=== PATIENT | female | born 1955 | race American Indian/Alaskan Native ===

== ENCOUNTER 2019-07-01 10:06 | Emergency (ER) | payer OTHER ==
[2019-07-01] MEDS ORDERED: TETANUS,DIPH,PERTUSS(ACELL) VACCINE 0.5 ML SYRINGE IM ONE (10:31)
[2019-07-01] MEDS ORDERED: LISINOPRIL 20 MG TAB PO ONE (10:34)
--- NOTE | 2019-07-01 10:37 | Emergency Department Report ---
ED Head Trauma HPI - General Chief complaint: Head Injury Stated complaint: FACE INJURY Time Seen by Provider: 07/01/19 10:21 Source: patient Mode of arrival: Ambulatory Limitations: No Limitations - History of Present Illness Initial comments: 63-year-old female with a past medical history hypertension presents to the hospital status post fall 2 days ago. Patient states she tripped and fell striking the left side of her forehead. She has a laceration to the left brow and left periorbital ecchymosis. She denies LOC. She complains of 2/10 headach e without nausea, vomiting, blurred vision, focal weakness, or focal numbness. She complains some mild generalized neck pain. Patient did not have her a.m. dose of lisinopril as scheduled but is otherwise compliant with a blood pressure medication. She presents with hypertension. - Related Data Previous Rx's Medication Instructions Recorded Last Taken Type Sulfamethoxazole/Trimethoprim 1 each PO BID #14 tablet 02/11/14 Unknown Rx [Bactrim Ds] Clindamycin [Clindamycin CAP] 450 mg PO Q8HR 10 Days capsule 07/01/19 Unknown Rx Ibuprofen [Motrin] 800 mg PO Q8HR PRN #20 tablet 07/01/19 Unknown Rx Allergies/Adverse reactions: Allergies Allergy/AdvReac Type Severity Reaction Status Date / Time Penicillins Allergy Rash Verified 02/11/14 12:03 ED Review of Systems ROS: Stated complaint: FACE INJURY Other details as noted in HPI Comment: All other systems reviewed and negative ED Past Medical Hx - Past Medical History Previous Medical History?: Yes Hx Hypertension: Yes - Surgical History Past Surgical History?: No - Social History Smoking Status: Never Smoker - Medications Home Medications: Home Medications Medication Instructions Recorded Confirmed Last Taken Type Sulfamethoxazole/Trimethoprim 1 each PO BID #14 tablet 02/11/14 Unknown Rx [Bactrim Ds] Clindamycin [Clindamycin CAP] 450 mg PO Q8HR 10 Days capsule 07/01/19 Unknown Rx Ibuprofen [Motrin] 800 mg PO Q8HR PRN #20 tablet 07/01/19 Unknown Rx ED Physical Exam - General Limitations: No Limitations - Other Other exam information: General: No acute distress Head: Atraumatic Eyes: normal appearance, pupils equal reactive to light. Left brow laceration 4.5 cm. Left periorbital ecchymosis with tenderness ENT: Moist mucous membranes Neck: Normal appearance, no midline tenderness Chest: Clear to auscultation bilaterally CV: Regular rate and rhythm Abdomen: Soft, normal bowel sounds, nontender, nondistended, no rebound or guarding Back: Normal inspection Extremity: Normal inspection infection, full range of motion Neuro: Alert O x 3, no facial asymmetry, speech clear, no gross motor sensory deficit Psych: Appropriate behavior Skin: No rash ED Course Vital Signs 07/01/19 07/01/19 07/01/19 10:17 10:33 11:01 Temperature 98.2 F Pulse Rate 63 63 64 Respiratory 18 16 Rate Blood Pressure 245/104 272/102 Blood Pressure 211/102 [Left] O2 Sat by Pulse 98 99 Oximetry 07/01/19 07/01/19 11:43 12:16 Temperature Pulse Rate 58 L 60 Respiratory 14 16 Rate Blood Pressure Blood Pressure 203/106 191/86 [Left] O2 Sat by Pulse 100 100 Oximetry - Lab Data Result diagrams: 07/01/19 11:02 07/01/19 11:02 Lab Results 07/01/19 07/01/19 Range/Units 11:02 11:02 WBC 6.8 (4.5-11.0) K/mm3 RBC 5.03 (3.65-5.03) M/mm3 Hgb 15.8 H (10.1-14.3) gm/dl Hct 45.7 H (30.3-42.9) % MCV 91 (79-97) fl MCH 31 (28-32) pg MCHC 35 H (30-34) % RDW 12.5 L (13.2-15.2) % Plt Count 263 (140-440) K/mm3 Lymph % (Auto) 27.2 (13.4-35.0) % [place] % (Auto) 8.4 H (0.0-7.3) % Eos % (Auto) 1.4 (0.0-4.3) % Baso % (Auto) 0.7 (0.0-1.8) % Lymph # 1.8 (1.2-5.4) K/mm3 [place] # 0.6 (0.0-0.8) K/mm3 Eos # 0.1 (0.0-0.4) K/mm3 Baso # 0.0 (0.0-0.1) K/mm3 Seg Neutrophils % 62.3 (40.0-70.0) % Seg Neutrophils # 4.3 (1.8-7.7) K/mm3 Sodium 141 (137-145) mmol/L Potassium 4.1 (3.6-5.0) mmol/L Chloride 103.4 (98-107) mmol/L Carbon Dioxide 21 L (22-30) mmol/L Anion Gap 21 mmol/L BUN 10 (7-17) mg/dL Creatinine 0.6 L (0.7-1.2) mg/dL Estimated GFR > 60 ml/min BUN/Creatinine Ratio 17 % Glucose 91 (65-100) mg/dL Calcium 9.5 (8.4-10.2) mg/dL - Radiology Data Radiology results: report reviewed CT head/brain wo con INDICATION / CLINICAL INFORMATION: 63 years Female; Head injury/elevated BP. TECHNIQUE: Routine CT head without contrast. All CT scans at this location are performed using CT dose reduction for ALARA by means of automated exposure control. COMPARISON: None. FINDINGS: BRAIN / INTRACRANIAL CO NTENTS: There is milder cerebral white matter disease most consistent with microvascular angiopathy. There is edema and small hematoma involving the left periorbital soft tissues at. However, there is no clear CT evidence of acute intracranial hemorrhage or significant mass effect. The ventricular system is appropriate in size and configuration. ORBITS: The CT orbits will be dictated separately. SINUSES / MASTOIDS: There is opacification of the left frontal sinus at. There is scattered opacification within the left ethmoid air cells at. There appears to be hypoplasia of the visualized superior left maxillary sinus with opacification. Appears be mild mucosal thickening along the inferior left sphenoid sinus. CRANIOCERVICAL JUNCTION: No significant abnormality. ADDITIONAL FINDINGS: None. IMPRESSION: 1. There is mild edema involving the left periorbital soft tissues. However, there is no CT evidence of acute intracranial hemorrhage. 2. 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 3. There is left- sided sinus inflammatory disease as described. CT cervical spine without contrast INDICATION: fall, neck pain. TECHNIQUE: Axial imaging performed through the cervical spine without the use of contrast. Sagittal and coronal reconstructed images were also reviewed. All CT scans at this location are performed using CT dose reduction for ALARA by means of automated exposure control. COMPARISON: None FINDINGS: Alignment: Spinal alignment is normal. Bones: There is no acute osseous abnormality. 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 Soft tissues: No acute or significant incidental soft tissue abnormality. IMPRESSION: No acute abnormality. CT orbits without contrast CLINICAL HISTORY: Orbital trauma, left periorbital ecchymosis. FINDINGS: No previous exams available for comparison. There is a fracture involving the left orbital floor with mild degree of angulation and depression. There is complete opacification of the left at maxillary sinus and ostiomeatal complex at. There is some thickening of the left maxillary sinus wall and left orbital floor and correlation would be needed regarding the age of this finding. There is note of small hematoma and surrounding edema involving the lateral left periorbital soft tissues at. There is also suggestion of nondisplaced fracture involving the medial left orbital wall with scattered opacification of the left mastoid air cells. The optic globes demonstrate appropriate size and configuration. There is mild disc placement of the orbital fat inferiorly on the left with mild rounded contour of the left inferior rectus muscle. However, there is no entrapment of the muscle. There appear to be mild inflammatory changes adjacent to the left orbital floor. There is slight depression of the midportion of the left zygomatic arch of the arch appears intact. All CT scans at this location are performed using the CT dose reduction for [employer] by means of automated exposure control. IMPRESSION: There is mildly angulated and depressed fracture involving the left orbital floor as detailed above. There also appears be nondisplaced fracture involving medial left orbital wall with scattered opacification of the adjacent left ethmoid air cells. There is a small hematoma and surrounding edema involving the left periorbital soft tissues. - Medical Decision Making pt says with hypertension due to not have her BP medication this morning. Given lisinopril 40 mg by mouth in the ED. bp trending downward. bp elevation likely secondary to med nonocompliance. No signs of htn emergency. CT does not show any intracranial hemorrhage.+ Left orbital fractures noted. Pt's laceration is healing without signs of infection at this time. Patient was treated with antibiotic and outpatient follow-up encouraged with ENT trauma [facility]. pt given copy of ct orbit report to take to f/u visits - Differential Diagnosis ich, fxt, htn emergency Critical Care Time: No Critical care attestation.: If time is entered above; I have spent that time in minutes in the direct care of this critically ill patient, excluding procedure time. ED Disposition Clinical Impression: Left orbit fracture, Uncontrolled hypertension, Laceration of brow without complication Disposition: DC- TO HOME OR SELFCARE Is pt being admited?: No Does the pt Need Aspirin: No Condition: Stable Instructions: Laceration (ED), Facial Fracture (ED), Hypertension (ED) Additional Instructions: Take the medication as prescribed. Follow-up with your doctor or doctor/clinic provided. Return if symptoms worsen as indicated by your discharge instructions. Prescriptions: Clindamycin [Clindamycin CAP] 450 mg PO Q8HR 10 Days capsule Ibuprofen [Motrin] 800 mg PO Q8HR PRN #20 tablet PRN Reason: Pain , Severe (7-10) Referrals: PRIMARY CARE,MD [Primary Care Provider] - 3-5 Days [facility] [Outside] - 3-5 Days (call to follow up with the Ear nose throat doctor at [place].) Time of Disposition: 12:32
--- NOTE | 2019-07-01 11:16 | Cat Scan Report ---
CT head/brain wo con INDICATION / CLINICAL INFORMATION: 63 years Female; Head injury/elevated BP. TECHNIQUE: Routine CT head without contrast. All CT scans at this location are performed using CT dos e reduction for ALARA by means of automated exposure control. COMPARISON: None. FINDINGS: BRAIN / INTRACRANIAL CONTENTS: There is milder cerebral white matter disease most consistent with jes rovascular angiopathy. There is edema and small hematoma involving the left periorbital soft tissues at. However, there is no clear CT evidence of acute intracranial hemorrhage or significant mass effec t. The ventricular system is appropriate in size and configuration. ORBITS: The CT orbits will be dictated separately. SINUSES / MASTOIDS: There is opacification of the left frontal sinus at. There is scattered opacifica tion within the left ethmoid air cells at. There appears to be hypoplasia of the visualized superior left maxillary sinus with opacification. Appears be mild mucosal thickening along the inferior left s phenoid sinus. CRANIOCERVICAL JUNCTION: No significant abnormality. ADDITIONAL FINDINGS: None. IMPRESSION: 1. There is mild edema involving the left periorbital soft tissues. However, there is no CT evidence of acute intracranial hemorrhage. 2. 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 3. There is left-sided sinus inflammatory disease as described. Signer Name: Shiraz Fallon MD Signed: 07/01/2019 11:12 AM Workstation Name: [id number]
--- NOTE | 2019-07-01 11:25 | Cat Scan Report ---
CT orbits without contrast CLINICAL HISTORY: Orbital trauma, left periorbital ecchymosis. FINDINGS: No previous exams available for comparison. There is a fracture involving the left orbital floor with mild degree of angulation and depression. There is complete opacification of the left at m axillary sinus and ostiomeatal complex at. There is some thickening of the left maxillary sinus wall and left orbital floor and correlation would be needed regarding the age of this finding. There is no te of small hematoma and surrounding edema involving the lateral left periorbital soft tissues at. Th ere is also suggestion of nondisplaced fracture involving the medial left orbital wall with scattered opacification of the left mastoid air cells. The optic globes demonstrate appropriate size and configuration. There is mild disc placement of the orbital fat inferiorly on the left with mild rounded contour of the left inferior rectus muscle. Breaux yenifer, there is no entrapment of the muscle. There appear to be mild inflammatory changes adjacent to t he left orbital floor. There is slight depression of the midportion of the left zygomatic arch of the arch appears intact. All CT scans at this location are performed using the CT dose reduction for ALA RA by means of automated exposure control. IMPRESSION: There is mildly angulated and depressed fracture involving the left orbital floor as detailed above. There also appears be nondisplaced fracture involving medial left orbital wall with scattered opacifi cation of the adjacent left ethmoid air cells. There is a small hematoma and surrounding edema involving the left periorbital soft tissues. Signer Name: Shiraz Fallon MD Signed: 07/01/2019 11:21 AM Workstation Name: [id number]
--- NOTE | 2019-07-01 11:26 | Cat Scan Report ---
CT cervical spine without contrast INDICATION: fall, neck pain. TECHNIQUE: Axial imaging performed through the cervical spine without the use of contrast. Sagittal and coronal reconstructed images were also reviewed. All CT scans at this location are performed us ing CT dose reduction for ALARA by means of automated exposure control. COMPARISON: None FINDINGS: Alignment: Spinal alignment is normal. Bones: There is no acute osseous abnormality. There is multilevel discogenic DJD which is most adva nced at C4-5. Soft tissues: No acute or significant incidental soft tissue abnormality. IMPRESSION: No acute abnormality. Signer Name: Chilo Soliman MD Signed: 07/01/2019 11:22 AM Workstation Name: [id number]
[2019-07-01 11:39] LABS: Basophils % (Auto) 0.7 % (0.0-1.8); Eosinophils # (Auto) 0.1 K/mm3 (0.0-0.4); Eosinophils % (Auto) 1.4 % (0.0-4.3); Hematocrit 45.7 % (30.3-42.9); Hemoglobin 15.8 gm/dl (10.1-14.3); Lymphocytes # (Auto) 1.8 K/mm3 (1.2-5.4); Lymphocytes % (Auto) 27.2 % (13.4-35.0); Mean Corpuscular HGB Conc 35 % (30-34); Mean Corpuscular Volume 91 fl (79-97); Monocytes # (Auto) 0.6 K/mm3 (0.0-0.8); Monocytes % (Auto) 8.4 % (0.0-7.3); Platelet Count 263 K/mm3 (140-440); Red Blood Count 5.03 M/mm3 (3.65-5.03); Red Cell Distribution Width 12.5 % (13.2-15.2)
[2019-07-01 11:53] LABS: BUN/Creatinine Ratio 17; Blood Urea Nitrogen 10 mg/dL (7-17); Calcium 9.5 mg/dL (8.4-10.2); Hemolysis Index 43
[2019-07-01] MEDS ORDERED: CLINDAMYCIN 150 MG CAP PO ONE (12:00)
[2019-07-01 12:16] VITALS: BP 191/86
== END 2019-07-01 12:42 | disposition home or self-care (01) ==
LOC: ED 10:06
DX: S02.32XA Fracture of orbital floor, left side, initial encounter for closed fracture (principal); S01.112A Laceration without foreign body of left eyelid and periocular area, initial encounter; I10 Essential (primary) hypertension; Z79.899 Other long term (current) drug therapy; Z88.0 Allergy status to penicillin; W01.198A Fall on same level from slipping, tripping and stumbling with subsequent striking against other object, initial encounter; Y93.89 Activity, other specified; Y92.89 Other specified places as the place of occurrence of the external cause; Y99.8 Other external cause status
CPT/HCPCS: 36415; 70450; 70480; 72125; 80048; 85025; 90715

== ENCOUNTER 2019-07-06 09:45 | Emergency (ER) | payer OTHER ==
[2019-07-06 09:51] VITALS: BP 181/78
--- NOTE | 2019-07-06 10:35 | Emergency Department Report ---
ED General Adult HPI - General Chief complaint: Recheck/Abnormal Lab/Rx Stated complaint: MEDICATION Time Seen by Provider: 07/06/19 10:27 Source: patient Mode of arrival: Ambulatory Limitations: No Limitations - History of Present Illness Initial comments: Patient is 63 years old female presented to the ER stating that a clindamycin that she was given 5 days ago for orbital fracture causing had to have cough and made her blood pressure up. Patient is asking if we can change her antibiotic to something else. Patient reported that she had history of a side effect of clindamycin before. Patient denied any chest pain, headache, fever or chills. Severity scale (0 -10): 0 - Related Data Previous Rx's Medication Instructions Recorded Last Taken Type Sulfamethoxazole/Trimethoprim 1 each PO BID #14 tablet 02/11/14 Unknown Rx [Bactrim Ds] Clindamycin [Clindamycin CAP] 450 mg PO Q8HR 10 Days capsule 07/01/19 Unknown Rx Ibuprofen [Motrin] 800 mg PO Q8HR PRN #20 tablet 07/01/19 Unknown Rx Allergies Allergy/AdvReac Type Severity Reaction Status Date / Time Penicillins Allergy Rash Verified 07/06/19 09:47 ED Review of Systems ROS: Stated complaint: MEDICATION Other details as noted in HPI Comment: All other systems reviewed and negative Constitutional: denies: chills, fever Respiratory: cough. denies: shortness of breath, SOB with exertion, wheezing Cardiovascular: denies: chest pain Gastrointestinal: denies: abdominal pain, nausea, vomiting ED Past Medical Hx - Past Medical History Hx Hypertension: Yes - Social History Smoking Status: Never Smoker - Medications Home Medications: Home Medications Medication Instructions Recorded Confirmed Last Taken Type Sulfamethoxazole/Trimethoprim 1 each PO BID #14 tablet 02/11/14 Unknown Rx [Bactrim Ds] Clindamycin [Clindamycin CAP] 450 mg PO Q8HR 10 Days capsule 07/01/19 Unknown Rx Ibuprofen [Motrin] 800 mg PO Q8HR PRN #20 tablet 07/01/19 Unknown Rx ED Physical Exam - General Limitations: No Limitations General appearance: alert, in no apparent distress - Head Head exam: Present: other (laceration to the left eyebrow is healing well.) - Eye Eye exam: Present: normal appearance - Respiratory Respiratory exam: Present: normal lung sounds bilaterally. Absent: respiratory distress, wheezes, rales, chest wall tenderness - Cardiovascular Cardiovascular Exam: Present: regular rate, normal heart sounds - Neurological Exam Neurological exam: Present: alert, oriented X3, CN II-XII intact, normal gait ED Course Vital Signs 07/06/19 09:49 Temperature 98.5 F Pulse Rate 65 Respiratory 18 Rate Blood Pressure 181/78 [Right] O2 Sat by Pulse 97 Oximetry ED Medical Decision Making - Medical Decision Making Patient advised to discontinue clindamycin. Patient given prescription for Bactrim. Critical care attestation.: If time is entered above; I have spent that time in minutes in the direct care of this critically ill patient, excluding procedure time. ED Disposition Clinical Impression: Cough, Side effect of drug Disposition: DC-01 TO HOME OR SELFCARE Is pt being admited?: No Condition: Stable Instructions: Facial Fracture (ED) Referrals: PRIMARY CARE, [Referring] - 3-5 Days
== END 2019-07-06 10:55 | disposition home or self-care (01) ==
LOC: ED 09:45
DX: R05 Cough (principal); T36.95XA Adverse effect of unspecified systemic antibiotic, initial encounter; I10 Essential (primary) hypertension; Z88.0 Allergy status to penicillin; Z79.1 Long term (current) use of non-steroidal anti-inflammatories (NSAID); Z79.899 Other long term (current) drug therapy; X58.XXXA Exposure to other specified factors, initial encounter; Y93.89 Activity, other specified; Y92.89 Other specified places as the place of occurrence of the external cause; Y99.8 Other external cause status
CPT/HCPCS: 99281